=== PATIENT | male | born 2000 | race Caucasian/White ===

== ENCOUNTER 2021-03-02 09:28 | Emergency (ER) | payer MEDICAID ==
[~2021-03-02] VITALS: Ht 172.7 cm; Wt 59.4 kg
--- NOTE | 2021-03-02 09:39 | NUR ---
To ER be 8, bib family for nausea and vomiting in the morning upon waking up, aaox3, breathing even and non labored, admits to smoking weeds, connected to monitor, awaiting md orders
[2021-03-02] MEDS ORDERED: PROCHLORPERAZINE EDISYLATE 10 MG/2 ML VIAL ONE (09:59)
[2021-03-02] MEDS ORDERED: diphenhydrAMINE HCL 50 MG/ML VIAL ONE (09:59)
[2021-03-02] MEDS ORDERED: IV NS 0.9% 1,000 ML BAG IV ONE (10:00)
[2021-03-02] MEDS ORDERED: diphenhydrAMINE HCL 50 MG/ML VIAL IV ONE (10:00)
[2021-03-02] MEDS ORDERED: PROCHLORPERAZINE EDISYLATE 10 MG/2 ML VIAL IVP ONE (10:00)
[2021-03-02 10:24] LABS: BASOPHILS # (AUTO) 0.1 K/uL (0.0-0.2); BASOPHILS % (AUTO) 0.6 % (0.0-2.0); EOSINOPHILS % (AUTO) 1.5 % (0.0-6.0); HEMATOCRIT 49 % (39-51); LYMPHOCYTES % (AUTO) 22.4 % (20.0-44.0); MEAN CORPUSCULAR HGB CONC 33 g/dl (31.0-36.0); MEAN CORPUSCULAR VOLUME 93 fL (80-96); MONOCYTES # (AUTO) 0.8 K/uL (0.1-1.30); NEUTROPHILS # (AUTO) 9.5 K/uL (1.8-8.9); NEUTROPHILS % (AUTO) 69.5 % (43.0-81.0); PLATELET COUNT (AUTO) 185 K/uL (150-450); RED BLOOD CELL COUNT(AUTO) 5.23 MIL/uL (4.5-6.0); WHITE BLOOD COUNT (AUTO) 13.6 K/uL (4.3-11.0)
[2021-03-02 12:34] LABS: ALANINE AMINOTRANSFERASE 20 U/L (12-78); ALBUMIN 4.5 g/dL (3.4-5.0); ALKALINE PHOSPHATASE 68 U/L (46-116); ASPARTATE AMINOTRANSFERASE 21 U/L (15-37); BILIRUBIN,DIRECT 0.1 mg/dL (0.0-0.2); BILIRUBIN,TOTAL 0.3 mg/dL (0.2-1.0); CALCIUM, SERUM 9.9 mg/dL (8.5-10.1); CARBON DIOXIDE 25 mmol/L (21-32); CHLORIDE 103 mmol/L (98-107); GLUCOSE 110 mg/dL (74-106); LIPASE 161 U/L (73-393); POTASSIUM 4.4 mmol/L (3.5-5.1); SODIUM SERUM 140 mmol/L (136-145); TOTAL PROTEIN, SERUM 8.6 g/dL (6.4-8.2); UREA NITROGEN, BLOOD 14 mg/dL (7-18)
--- NOTE | 2021-03-02 12:59 | NUR ---
pt able to tolerate po challenge. states feeling much better. no vomiting noted. IV removed. Catheter intact and site benign. Pressure and 4x4 applied to site. No bleeding noted. pt verbally discharge in stable condition.
[2021-03-02 13:01] VITALS: BP 132/65
== END 2021-03-02 13:03 | disposition home or self-care (01) ==
LOC: ER 09:31
DX: R11.10 Vomiting, unspecified (principal); R56.9 Unspecified convulsions
CPT/HCPCS: 36415; 70450; 80048; 80076; 83690; 84484; 85025; 93005; 96361; 96374; 96375; 99285; J0780; J1200; J7030